=== PATIENT | female | born 2000 | race African-American/Black ===

== ENCOUNTER 2021-05-16 22:05 | Emergency (ER) | payer BC ==
[~2021-05-16] VITALS: Ht 160 cm; Wt 65.0 kg
[2021-05-17 00:56] VITALS: BP 117/76; PULSE 83; TEMP 98.7
== END 2021-05-17 00:56 | disposition home or self-care (01) ==
LOC: COL.ER 22:05
DX: J06.9 Acute upper respiratory infection, unspecified (principal); M54.2 Cervicalgia

== ENCOUNTER 2021-09-13 02:04 | Emergency (ER) | payer BC ==
[~2021-09-13] VITALS: Ht 160 cm; Wt 65.9 kg
[2021-09-13 02:13] VITALS: TEMP 98
[2021-09-13 03:08] VITALS: BP 117/67; PULSE 92
== END 2021-09-13 03:08 | disposition home or self-care (01) ==
LOC: COL.ER 02:04
DX: R07.89 Other chest pain (principal)

== ENCOUNTER 2021-10-12 21:06 | Emergency (ER) | payer BC ==
[~2021-10-12] VITALS: Ht 160 cm; Wt 59.1 kg
[2021-10-12 21:21] VITALS: TEMP 98.9
[2021-10-12] MEDS ORDERED: ESTARYLLA 35 MC1 TAB PO (21:25)
[2021-10-12 23:45] LABS: COLLECTION METHOD CLEAN CATCH
[2021-10-12 23:48] LABS: BASO % 0.4 % (0.0-2.0); EOS # 0.1 K/mm3 (0.0-0.7); EOS % 0.8 % (0.0-4.0); GRAN # 4.1 K/mm3 (1.4-6.5); GRAN % 52.4 % (42.2-75.2); HEMATOCRIT 37.9 % (37.0-47.0); HEMOGLOBIN 12.5 g/dl (12.5-16.0); LYMPH % 37.5 % (20.0-51.0); MEAN CELL VOLUME 84 fl (80.0-100.0); MEAN CORPUSCULAR HEMOGLOBIN 28 pg (27-31); MEAN CORPUSCULAR HGB CONC 33 g/dl (33.0-37.0); MEAN PLATELET VOLUME 9.6 fl (7.4-10.4); MONO # 0.7 K/mm3 (0.1-0.6); MONO % 8.6 % (1.7-9.3); PLATELET COUNT 244 K/mm3 (130-400); REDCELL DISTRIBUTION WIDTH-CV 14.4 % (11.5-14.5)
[2021-10-12 23:52] LABS: MUCOUS Present (NOT PRESENT); PH 7 (5-8); URINE APPEARANCE Clear (CLEAR/HAZY); URINE BACTERIA None Seen /hpf (NONE SEEN); URINE BILIRUBIN Negative (NEGATIVE); URINE BLOOD Negative (NEGATIVE); URINE COLOR Yellow (YELLOW); URINE GLUCOSE Negative (NEGATIVE); URINE KETONE Negative (NEGATIVE); URINE LEUKOCYTE ESTERASE Negative (NEGATIVE); URINE NITRATE Negative (NEGATIVE); URINE PROTEIN(semi-quant) Negative (NEGATIVE); URINE RBC 0-2 /hpf (0-2); URINE UROBILINOGEN Negative (NEGATIVE)
[2021-10-13 00:07] LABS: ALBUMIN 3.3 gm/dL (3.5-5.0); CALCIUM 8.8 mg/dL (8.4-10.2); CREATININE, serum 0.82 mg/dL (0.57-1.11); POTASSIUM 4.2 mmol/L (3.5-4.5); TOTAL PROTEIN 6.7 gm/dL (6.2-8.1)
[2021-10-13 00:28] LABS: BILIRUBIN,TOTAL 0.2 mg/dL (0.2-1.2)
[2021-10-13 01:05] VITALS: BP 122/84; PULSE 71
== END 2021-10-13 01:17 | disposition home or self-care (01) ==
LOC: COL.ER 21:06
PROVIDERS: Physician Assistant
DX: R05.9 Cough, unspecified (principal)

== ENCOUNTER 2022-06-09 16:12 | Emergency (ER) | payer BC ==
[~2022-06-09] VITALS: Ht 160 cm; Wt 70.0 kg
[~2022-06-09 16:12] MED LIST: ESTARYLLA 35 MC1 TAB PO
[2022-06-09 16:19] VITALS: TEMP 97.9
[2022-06-09 17:30] LABS: STREP SCREEN NEGATIVE
[2022-06-09 17:58] VITALS: BP 101/68; PULSE 82
== END 2022-06-09 17:58 | disposition home or self-care (01) ==
LOC: COL.ER 16:12
PROVIDERS: Nurse Practitioner Primary Care
DX: J02.9 Acute pharyngitis, unspecified (principal); B34.9 Viral infection, unspecified; H69.91 Unspecified Eustachian tube disorder, right ear
CPT/HCPCS: J1885